=== PATIENT | female | born 1950 | race Caucasian/White ===

== ENCOUNTER 2019-07-03 16:10 | Inpatient (IN) | payer MEDICARE, OTHER ==
[~2019-07-03] VITALS: Ht 157.5 cm; Wt 69.7 kg
[~2019-07-03 16:10] MED LIST: AMLO10 PO; ANAS1 PO; CIPRO500 MG PO; HYDACE5 PO; NITR100CA PO; Norco 5-325 Ta1 EACH PO; OXYACE5T PO; PHENA200 PO; PROM25 PO; SULTRIDS PO
[2019-07-03] MEDS ORDERED: IBU600 M1 PO (16:51)
[2019-07-03 17:48] LABS: BASOPHILS ABSOLUTE AUTO 0.06 K/mm3 (0.00-0.23); BASOPHILS PERCENT AUTO 0 % (0-2); EOSINOPHILS ABSOLUTE AUTO 0.03 K/mm3 (0.00-0.68); EOSINOPHILS PERCENT AUTO 0 % (0-6); Hemoglobin 6.9 g/dL (11.5-16.0); IMMATURE GRAN ABSOLUTE AUTO 0.08 K/mm3 (0.00-0.10); IMMATURE GRAN PERCENT AUTO 1 % (0-1); LYMPHOCYTES ABSOLUTE AUTO 3.44 K/mm3 (0.84-5.20); LYMPHOCYTES PERCENT AUTO 24 % (21-46); MONOCYTES PERCENT AUTO 5 % (4-13); Mean Corpuscular HGB 31.2 pg (26.0-34.0); Mean Corpuscular HGB Conc 32.9 g/dL (31.5-36.5); Mean Corpuscular Volume 95 fL (80-100); Mean Platelet Volume 12.1 fL (9.1-12.4); NEUTROPHILS PERCENT AUTO 70 % (41-73); NRBC ABSOLUTE 0.03 K/mm3 (0.00-0.02); NRBC Auto 0.2 /100 WBC (0.0-0.2); Platelet Count 156 K/mm3 (150-400); RDW Coefficient Variation 15.1 % (11.7-14.2); RDW Standard Deviation 50.2 fL (35.1-46.3); Red Blood Cell Count 2.21 M/mm3 (3.80-5.20); White Blood Cell Count 14.31 K/mm3 (4.00-11.30)
[2019-07-03 18:11] LABS: Anion Gap 5 mmol/L (6-16); Blood Urea Nitrogen 23 mg/dL (8-24); CO2, Blood 21 mmol/L (21-32); Calcium, Blood 8.3 mg/dL (8.5-10.1); Chloride, Blood 112 mmol/L (98-108); Glucose, Blood 114 mg/dL (70-99); Potassium, Blood 2.7 mmol/L (3.5-5.5); Sodium, Blood 138 mmol/L (136-145)
[2019-07-03 18:15] LABS: Alanine Aminotransfer (ALT/SGP 24 U/L (12-78); Albumin/Globulin Ratio 1.2 (0.8-1.8); Alk Phos 52 U/L (50-136); Aspartate Aminotrans (AST/SGOT 14 U/L (12-37); Bilirubin, Total 0.2 mg/dL (0.1-1.0); Globulin, Blood 2.6 g/dL (2.2-4.0); Glomerular Filtration Rate >60 (60-); Total Protein, Blood 5.6 g/dL (6.4-8.2)
[2019-07-03] MEDS ORDERED: THERA1 EACH PO (22:28)
[2019-07-04 05:52] LABS: Hematocrit 21.2 % (33.0-51.0); Hemoglobin 7.1 g/dL (11.5-16.0); Mean Corpuscular HGB 31.1 pg (26.0-34.0); Mean Corpuscular HGB Conc 33.5 g/dL (31.5-36.5); Mean Corpuscular Volume 93 fL (80-100); Mean Platelet Volume 12.4 fL (9.1-12.4); Platelet Count 120 K/mm3 (150-400); RDW Coefficient Variation 15.3 % (11.7-14.2); RDW Standard Deviation 49.9 fL (35.1-46.3); Red Blood Cell Count 2.28 M/mm3 (3.80-5.20); White Blood Cell Count 10.99 K/mm3 (4.00-11.30)
--- NOTE | 2019-07-04 06:36 | NUR ---
SHIFT SUMMARY PT WAS A NEW ADMIT DURING THE NIGHT, ARRIVING ON THE FLOOR AT 2209. SHE WAS ADMITTED FOR A GI BLEED. SHE IS A&O X 4, AND BEDREST DUE TO A SYNCOPAL EPISODE AND NEAR FALL IN THE ED PER REPORT BY THE ER NURSE. PT IS STILL HAVING BLACK, TARRY LIQUID DIARRHEA. NO COMPLAINTS OF PAIN, NAUSEA OR SOB. PT HAD 1 UNIT PRBCS DURING THE NIGHT, AN IV POTASSIUM AND MAGNESIUM RIDER, AND STARTED NS @ 75 ML/HR WITH A PROTONIX DRIP. VS STABLE. PT IS NPO FOR A EGD TODAY. NO OTHER ACUTE CHANGES IN PT CONDITION NOTED. WILL CONTINUE TO MONITOR AND TREAT PER EMAR UNTIL HAND OFF TO DAY SHIFT RN.
[2019-07-04 09:03] LABS: Albumin, Blood 2.7 g/dL (3.4-5.0); Anion Gap 6 mmol/L (6-16); Blood Urea Nitrogen 15 mg/dL (8-24); Bun/Creatinine Ratio 23.9 (12.0-20.0); CO2, Blood 20 mmol/L (21-32); Calcium, Blood 7.7 mg/dL (8.5-10.1); Chloride, Blood 120 mmol/L (98-108); Creatinine, Blood 0.63 mg/dL (0.40-1.00); Glomerular Filtration Rate >60 (60-); Glucose, Blood 85 mg/dL (70-99); Magnesium, Blood 2.1 mg/dL (1.6-2.4); Phosphorus, Blood 2.1 mg/dL (2.5-4.9); Potassium, Blood 3.2 mmol/L (3.5-5.5); Sodium, Blood 146 mmol/L (136-145)
--- NOTE | 2019-07-04 11:42 | NUR ---
NOTED A LEFT HAND 20G IV TO BE IN PLACE.
[2019-07-04 13:14] LABS: Hematocrit 25.8 % (33.0-51.0); Hemoglobin 8.6 g/dL (11.5-16.0)
--- NOTE | 2019-07-04 16:02 | NUR ---
PER DR. MARINO HORN TO HOLD OFF ON K PHOS WHILE BLOOD IS ADMINISTERING DUE TO IV ACCESS AVAILABILITY
--- NOTE | 2019-07-04 16:28 | NUR ---
SHIFT SUMMARY PATIENT IS RECIEVING BLOOD PRODUCTS, WILL GO OUT FOR EGD AFTER BLOOD IS COMPLETE. A&OX4. 1 PERSON STAND BY ASSIST TO BATHROOM. HAS HAD NO COMPLAINTS.
--- NOTE | 2019-07-04 17:30 | NUR ---
INTO SDS FROM MEDICAL FLOOR ADMISSION TO UNIT STARTED.
--- NOTE | 2019-07-04 18:42 | NUR ---
07/04/19 184 Manuel Rogers PATIENT DETERMINED TO BE ASA APPROPRIATE FOR PROPOFOL SEDATION PRIOR TO START OF PROCEDURE BY DR. Cydney Jordan Placed3-LEAD EKG REVIEWED WITH PHYSICIAN PRIOR TO START OF PROCEDURE.Patient to ENDO 13-LEAD EKG REVIEWED WITH PHYSICIAN PRIOR TO START OF PROCEDURE.MONITOR INTACT WITH CONTINUOUS PULSE OXIMETRY AND INTERMITTENT BP.O2 VIA N/C INTACT THROUGHOUT SEDATION/PROCEDURE.
--- NOTE | 2019-07-04 20:19 | NUR ---
1919-TIMOTHY GOT BACK FROM PACU. REPORT WAS RECEIVED. SHE IS UP INDEPENDENTLY TO THE BATHROOM. ASSISTED HER BACK TO BED. SHE IS STEADY ON HER FEET. VITALS WERE TAKEN AT 1950. 2019- IV KPHOS WAS STARTED. IV PROTONIX GIVEN. SHE DENIES ANY STOMACH PAIN, NAUSEA, OR OTHER DISCOMFORTS. STATES SHE IS FEELING OK, NO DIZZINESS OR LIGHTHEADNESS. VS ARE ALL LOOKING GOOD WILL CONTINUE TO MONITOR.
[2019-07-05 05:03] LABS: Hematocrit 26.9 % (33.0-51.0); Hemoglobin 8.9 g/dL (11.5-16.0); Mean Corpuscular HGB 29.9 pg (26.0-34.0); Mean Corpuscular HGB Conc 33.1 g/dL (31.5-36.5); Mean Platelet Volume 11.6 fL (9.1-12.4); NRBC ABSOLUTE 0.02 K/mm3 (0.00-0.02); NRBC Auto 0.2 /100 WBC (0.0-0.2); Platelet Count 123 K/mm3 (150-400); RDW Standard Deviation 52.2 fL (35.1-46.3); Red Blood Cell Count 2.98 M/mm3 (3.80-5.20); White Blood Cell Count 9.39 K/mm3 (4.00-11.30)
[2019-07-05 05:05] LABS: Mean Corpuscular Volume 90 fL (80-100)
[2019-07-05 05:27] LABS: Albumin, Blood 2.4 g/dL (3.4-5.0); Anion Gap 6 mmol/L (6-16); Blood Urea Nitrogen 7 mg/dL (8-24); Bun/Creatinine Ratio 11.5 (12.0-20.0); CO2, Blood 21 mmol/L (21-32); Calcium, Blood 7.4 mg/dL (8.5-10.1); Chloride, Blood 121 mmol/L (98-108); Creatinine, Blood 0.61 mg/dL (0.40-1.00); Glomerular Filtration Rate >60 (60-); Glucose, Blood 86 mg/dL (70-99); Phosphorus, Blood 2.9 mg/dL (2.5-4.9); Potassium, Blood 2.8 mmol/L (3.5-5.5); Sodium, Blood 148 mmol/L (136-145)
--- NOTE | 2019-07-05 06:39 | NUR ---
SHIFT SUMMARY: TIMOTHY HAD A GOODN NIGHT. SHE ARRIVED FROM PACU AT START OF SHIFT. KPHOS AND IV FLUIDS WERE STARTED. THEY HAVE BEEN INFUSING WELL ALL NIGHT. KPHOS IS COMPLETE. SHE HAS NOT HAD ANY NAUSEA OR BOWEL MOVEMENTS THIS SHIFT. SHE HAS BEEN ABLE TO GET UP INDEPENDENTLY BUT WITH IV POLE SHE HAS GOTTEN ASSIST. VS HAVE REMAINED STABLE. NO OTHER ACUTE CHANGES TO NOTE THIS SHIFT.
--- NOTE | 2019-07-05 11:29 | NUR ---
PULLED PERIPHERAL IV DUE TO LEAKING. PATIENT IN BED. TOLERATING POTASSIUM WITH NO ISSUES. ABLE TO MAKE HER NEEDS KNOWN.
--- NOTE | 2019-07-05 18:19 | NUR ---
SHIFT SUMMARY PATIENT BM'S HAVE IMPROVED SIGNIFICANTLY SHOWING A GREEN/MAROON IN COLOR. SHE HAS HAD LESS BM WELL. ABLE TO MAKE HER NEEDS KNOWN. INDEPENDENT IN THE ROOM. TOLERATED IV K+ WITH NO ISSUES.
[2019-07-06 06:37] LABS: Hematocrit 28.2 % (33.0-51.0); Hemoglobin 9.3 g/dL (11.5-16.0); Mean Corpuscular HGB 30.3 pg (26.0-34.0); Mean Corpuscular Volume 92 fL (80-100); Mean Platelet Volume 11.5 fL (9.1-12.4); Platelet Count 163 K/mm3 (150-400); RDW Coefficient Variation 17.9 % (11.7-14.2); RDW Standard Deviation 54.4 fL (35.1-46.3); Red Blood Cell Count 3.07 M/mm3 (3.80-5.20); White Blood Cell Count 8.86 K/mm3 (4.00-11.30)
[2019-07-06 06:51] LABS: Albumin, Blood 2.6 g/dL (3.4-5.0); Anion Gap 6 mmol/L (6-16); Blood Urea Nitrogen 7 mg/dL (8-24); Bun/Creatinine Ratio 9.6 (12.0-20.0); CO2, Blood 21 mmol/L (21-32); Chloride, Blood 120 mmol/L (98-108); Creatinine, Blood 0.73 mg/dL (0.40-1.00); Glomerular Filtration Rate >60 (60-); Glucose, Blood 85 mg/dL (70-99); Phosphorus, Blood 2.6 mg/dL (2.5-4.9); Potassium, Blood 3.4 mmol/L (3.5-5.5); Sodium, Blood 147 mmol/L (136-145)
--- NOTE | 2019-07-06 07:30 | NUR ---
07/06/19 0600 CHEERFUL PT AND DENIES ANY S/S. VITALS STABLE. STATES SHE HAD ONE BROWN LIQUID STOOL IN THE TOILET.
[2019-07-06] MEDS ORDERED: POTA10T PO (11:36)
[2019-07-06] MEDS ORDERED: OMEP20ER PO (11:36)
--- NOTE | 2019-07-06 12:09 | NUR ---
DISCHARGE SUMMARY IV REMOVED. RX FAXED TO [facility]. APPOINTMENTS MADE WITH PCP AND GASTRO. EDUCATION REGARDING HYPOKALEMIA, OMPERAZOLE AND GI BLEED GIVEN. PATIENT HAD NO QUESTIONS. CALLED FOR A RIDE FROM FAMILY.
--- NOTE | 2019-07-06 12:15 | NUR ---
PATIENT REFUSED TO BE ESCORTED OUT BY STAFF.
== END 2019-07-06 13:00 | disposition home or self-care (01) | DRG 378 ==
LOC: ER 16:10 → MEDS 16:11 → ENPENDDIS 07-06 09:00 → MEDS 07-06 13:00
PROVIDERS: Family Medicine; Internal Medicine; Nurse Practitioner Acute Care; Physician Assistant; ADMIT Internal Medicine
PROC: 30233N1 Transfusion of Nonautologous Red Blood Cells into Peripheral Vein, Percutaneous Approach (ICD-10-PCS; principal; 2019-07-03)
PROC: 0DD98ZX Extraction of Duodenum, Via Natural or Artificial Opening Endoscopic, Diagnostic (ICD-10-PCS; 2019-07-04)
PROC: 0DD68ZX Extraction of Stomach, Via Natural or Artificial Opening Endoscopic, Diagnostic (ICD-10-PCS; 2019-07-04)
DX: K26.4 Chronic or unspecified duodenal ulcer with hemorrhage (principal); D62 Acute posthemorrhagic anemia; E87.0 Hyperosmolality and hypernatremia; Z90.12 Acquired absence of left breast and nipple; E87.6 Hypokalemia; Z85.3 Personal history of malignant neoplasm of breast; Z92.21 Personal history of antineoplastic chemotherapy; T39.395A Adverse effect of other nonsteroidal anti-inflammatory drugs [NSAID], initial encounter; Y92.9 Unspecified place or not applicable
CPT/HCPCS: 36415; 36430; 80053; 80069; 82272; 83735; 84132; 84484; 85014; 85018; 85025; 85027; 86850; 86900; 86901; 86923; 93005; 93010; 96361; 96365; 96366; 96367; 96375; 96376; 99285-25; C1751; C9113; G0378; J2704; J3475; J3480; J7030; J7060; J7120; P9016

== ENCOUNTER → 2020-05-21 | Outpatient (CLI) | payer MEDICARE, OTHER ==
[~2020-05-21] MED LIST changes: +IBU600 M1 PO; +OMEP20ER PO; +POTA10T PO; +THERA1 EACH PO
== END | disposition home or self-care (01) ==
LOC: PLD 08:04 → LAB SHORT 08:04
DX: D22.0 Melanocytic nevi of lip (principal)
CPT/HCPCS: 88305